=== PATIENT | male | born 1980 | race Caucasian/White ===

== ENCOUNTER 2022-12-19 18:15 | Emergency (ER) | payer BC | END 2022-12-19 20:45 | disposition left against medical advice (07) | LOC: MW.ED 18:15 | DX: Z53.21 Procedure and treatment not carried out due to patient leaving prior to being seen by health care provider (principal) ==

== ENCOUNTER 2022-12-21 00:13 | Emergency (ER) | payer BC ==
[2022-12-21] MEDS ORDERED: Ketorolac 30 MG/ML SDV IVPUSH ONE (01:43)
[2022-12-21] MEDS ORDERED: Dexamethasone 10 MG/ML SDV IVPUSH ONE (01:43)
[2022-12-21] MEDS ORDERED: Acetaminophen/oxyCODONE 325-5 MG Tab PO ONE (01:44)
== END 2022-12-21 03:30 | disposition home or self-care (01) ==
LOC: MW.ED 00:13
DX: M54.2 Cervicalgia (principal)
CPT/HCPCS: 96374; 96375; 99283; A9270; J1100; J1885; J3360; 99284